=== PATIENT | male | born 1950 | race Caucasian/White ===

== ENCOUNTER → 2024-04-27 11:49 | Outpatient (REF) | payer MEDICARE, SELFPAY | LOC: RAD 11:49 | PROVIDERS: ATTENDING PHYSICIAN Family Medicine | DX: M25.511 Pain in right shoulder (principal) | CPT/HCPCS: 73030 ==

== ENCOUNTER → 2025-03-05 07:43 | Outpatient (REF) | payer MEDICARE, SELFPAY | LOC: RCS 07:43 | PROVIDERS: FAMILY PHYSICIAN Family Medicine | DX: I48.91 Unspecified atrial fibrillation (principal) | CPT/HCPCS: 93306 ==